=== PATIENT | female | born 1935 | race Caucasian/White ===

== ENCOUNTER 2017-04-12 12:18 | Emergency (ER) | payer MEDICARE ==
[2017-04-12] MEDS ORDERED: Aspirin 81 MG Tab.Chew PO ONE (12:33)
[2017-04-12 13:50] VITALS: BP 125/69
--- NOTE | 2017-04-12 14:29 | EDM.PDOC ---
[id number] 4d CHEST PAIN ON LEFT ARM Time Seen by Provider: 04/12/17 12:40 Source of Information: Reports: Patient, Family History Limitations: Reports: No Limitations - History of Present Illness INITIAL COMMENTS - FREE TEXT/NARRATIVE: pt has been very gasy and she has pain in left shoulder and left ant ches. She is not sob. Onset: Gradual, Other ( some symptoms for the last 2-3 days. 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 ) Duration: Hour(s): Location: Reports: Chest, Upper Extremity, Left Associated Symptoms: Reports: Other (pt has pain in left upper chest and left shoulder. ) left arm Pain Score (Numeric/FACES): 6 - Related Data Allergies Allergy/AdvReac Type Severity Reaction Status Date / Time lisinopril Allergy Cough Verified 07/12/13 12:06 sulfisoxazole Allergy Rash Verified 07/12/13 12:02 [From Gantrisin] sulfisoxazole acetyl Allergy Rash Verified 07/12/13 12:02 [From Gantrisin] Home Meds: Home Meds Omeprazole 20 mg PO BID 07/12/13 [History] Hydrochlorothiazide/Olmesartan [Benicar HCT 20-12.5 MG] 0.5 tab DAILY 04/12/17 [ History] traMADol [Take Home: traMADol 50 MG, 4 Tab Pack] 1 tab PO PRN 04/12/17 [History] Past Medical History Cardiovascular History: Reports: Hypertension Gastrointestinal History: Reports: GERD [employer] History: Reports: Neurological History: Reports: Other (See Below) Other Neuro History: forgetful at times Psychiatric History: Reports: Depression - Infectious Disease History Infectious Disease History: Reports: Chicken Pox, Measles, Rheumatic Fever Social & Family History - Tobacco Use Smoking Status *Q: Former Smoker Used Tobacco, but Quit: Yes Month Tobacco Last Used: April Second Hand Smoke Exposure: No - Caffeine Use Caffeine Use: Reports: Coffee - Alcohol Use Days Per Week of Alcohol Use: 0 - Recreational Drug Use Recreational Drug Use: No - Living Situation & Occupation Living situation: Reports: Occupation: Retired ED ROS GENERAL - Review of Systems Review Of Systems: See Below Constitutional: Reports: No Symptoms HEENT: Reports: No Symptoms Respiratory: Reports: No Symptoms Cardiovascular: Reports: Other (pt has pin in her left shoulder nd the upper left chest. ) Endocrine: Reports: No Symptoms GI/Abdominal: Reports: No Symptoms : Reports: No Symptoms Musculoskeletal: Reports: Other (pt has pain in the left shoulder more when she moves. ) Skin: Reports: No Symptoms ED EXAM, GENERAL - Physical Exam Exam: See Below Free Text/Narrative:: pt arrived complaining of pain in the left shoulder and upper left chest, This definitely hurts more when she moves. She has not been sob but she has been doing alot of belching. Exam Limited By: No Limitations General Appearance: Alert, Moderate Distress Ears: Normal TMs Nose: Normal Inspection Throat/Mouth: Normal Inspection Head: Atraumatic Neck: Normal Inspection Respiratory/Chest: No Respiratory Distress Cardiovascular: Regular Rate, Rhythm, Other (no definite ekg changes. ) GI/Abdominal: Soft, Tender (Female) Exam: Deferred Rectal (Female) Exam: Deferred Back Exam: Normal Inspection Extremities: Normal Inspection Course - Vital Signs Last Recorded V/S: Last Vital Signs Temp 36.5 C 04/12/17 12:48 Pulse 75 04/12/17 13:49 Resp 15 04/12/17 13:49 BP 125/69 04/12/17 13:49 Pulse Ox 98 04/12/17 13:49 - Orders/Labs/Meds Orders: Active Orders 24 hr Category Date Time Status EKG Documentation Completion [RC] ASDIRECTED Care 04/12/17 12:34 Active Chest 1V Frontal [CR] Stat Exams 04/12/17 13:09 Taken EKG 12 Lead [EK] Routine Ther 04/12/17 12:33 Ordered Labs: Laboratory Tests 04/12/17 04/12/17 04/12/17 Range/Units 12:33 12:33 12:34 WBC 6.1 (4.5-11.0) K/uL RBC 4.42 (3.30-5.50) M/uL Hgb 11.8 L (12.0-15.0) g/dL Hct 36.0 (36.0-48.0) % MCV 81 (80-98) fL MCH 27 (27-31) pg MCHC 33 (32-36) % Plt Count 207 (150-400) K/uL Neut % (Auto) 59 (36-66) % Lymph % (Auto) 29 (24-44) % [place] % (Auto) 10 H (2-6) % Eos % (Auto) 2 (2-4) % Baso % (Auto) 1 (0-1) % Sodium 132 L (140-148) mmol/L Potassium 3.9 (3.6-5.2) mmol/L Chloride 99 L (100-108) mmol/L Carbon Dioxide 24 (21-32) mmol/L Anion Gap 12.9 (5.0-14.0) mmol/L BUN 21 H (7-18) mg/dL Creatinine 1.3 H (0.6-1.0) mg/dL Est Cr Clr Drug Dosing 27.60 mL/min Estimated GFR (MDRD) 39 L (>60) Glucose 102 (74-106) mg/dL Calcium 8.6 (8.5-10.1) mg/dL Total Bilirubin 0.6 (0.2-1.0) mg/dL AST 18 (15-37) U/L ALT 15 (12-78) U/L Alkaline Phosphatase 78 (46-116) U/L Creatine Kinase 113 (26-192) U/L Troponin I (0.000-0.056) ng/mL Total Protein 6.7 (6.4-8.2) g/dL Albumin 3.6 (3.4-5.0) g/dL Globulin 3.1 (2.3-3.5) g/dL Albumin/Globulin Ratio 1.2 (1.2-2.2) Lipase 266 (73-393) U/L Urine Color Urine Appearance Urine pH (4.5-8.0) Ur Specific [place] (1.008-1.030) Urine Protein (NEGATIVE) mg/dL Urine Glucose (UA) (NEGATIVE) mg/dL Urine Ketones (NEGATIVE) mg/dL Urine Occult Blood (NEGATIVE) Urine Nitrite (NEGATIVE) Urine Bilirubin (NEGATIVE) Urine Urobilinogen (NORMAL) mg/dL Ur Leukocyte Esterase (NEGATIVE) Urine RBC (0-5) Urine WBC (0-5) Ur Epithelial Cells Urine Bacteria Urine Mucus 04/12/17 04/12/17 Range/Units 13:29 13:45 WBC (4.5-11.0) K/uL RBC (3.30-5.50) M/uL Hgb (12.0-15.0) g/dL Hct (36.0-48.0) % MCV (80-98) fL MCH (27-31) pg MCHC (32-36) % Plt Count (150-400) K/uL Neut % (Auto) (36-66) % Lymph % (Auto) (24-44) % [place] % (Auto) (2-6) % Eos % (Auto) (2-4) % Baso % (Auto) (0-1) % Sodium (140-148) mmol/L Potassium (3.6-5.2) mmol/L Chloride (100-108) mmol/L Carbon Dioxide (21-32) mmol/L Anion Gap (5.0-14.0) mmol/L BUN (7-18) mg/dL Creatinine (0.6-1.0) mg/dL Est Cr Clr Drug Dosing mL/min Estimated GFR (MDRD) (>60) Glucose (74-106) mg/dL Calcium (8.5-10.1) mg/dL Total Bilirubin (0.2-1.0) mg/dL AST (15-37) U/L ALT (12-78) U/L Alkaline Phosphatase (46-116) U/L Creatine Kinase (26-192) U/L Troponin I < 0.017 (0.000-0.056) ng/mL Total Protein (6.4-8.2) g/dL Albumin (3.4-5.0) g/dL Globulin (2.3-3.5) g/dL Albumin/Globulin Ratio (1.2-2.2) Lipase (73-393) U/L Urine Color Yellow Urine Appearance Clear Urine pH 6.0 (4.5-8.0) Ur Specific [place] 1.015 (1.008-1.030) Urine Protein Negative (NEGATIVE) mg/dL Urine Glucose (UA) Normal (NEGATIVE) mg/dL Urine Ketones Negative (NEGATIVE) mg/dL Urine Occult Blood Moderate (NEGATIVE) Urine Nitrite Negative (NEGATIVE) Urine Bilirubin Negative (NEGATIVE) Urine Urobilinogen Normal (NORMAL) mg/dL Ur Leukocyte Esterase Negative (NEGATIVE) Urine RBC 0-5 (0-5) Urine WBC 0-5 (0-5) Ur Epithelial Cells Few Urine Bacteria Not seen Urine Mucus Few Meds: Medications Discontinued Medications Generic Name Dose Route Start Last Admin Trade Name Freq PRN Reason Stop Dose Admin Aspirin 324 mg 04/12/17 12:33 04/12/17 12:51 Aspirin PO 04/12/17 12:34 324 mg ONETIME ONE Administration - Re-Assessments/Exams Free Text/Narrative Re-Assessment/Exam: 04/13/17 07:10 pt had a normal chest xray. She had normal labs and cardiac enzymes. her ekg did not show acute changes. She was very tender to palpate over the left shoulder and upper left chest. She definitely hurt more when she did move. Departure - Departure Time of Disposition: 14:25 Disposition: Home, Self-Care 01 Condition: fair Clinical Impression: Chronic GERD, Left shoulder pain Instructions: Heartburn, [id number], Shoulder Pain, [id number] Referrals: PCP,None [Primary Care Provider] - Forms: ED Department Discharge Care Plan Goals: decreae benacar to 1/2 tab every other day, heat to the shoulder, cont tramodol , tylenol for shoulder discomfort increase omeprozole to twice daily for 5 days and then resume 1 per day rtc if pt develops acute pain, appt with Dr Cano in 1 week. - My Orders Last 24 Hours: My Active Orders 04/12/17 12:33 EKG 12 Lead [EK] Routine 04/12/17 12:34 EKG Documentation Completion [RC] ASDIRECTED 04/12/17 13:09 Chest 1V Frontal [CR] Stat - Assessment/Plan Last 24 Hours: My Active Orders 04/12/17 12:33 EKG 12 Lead [EK] Routine 04/12/17 12:34 EKG Documentation Completion [RC] ASDIRECTED 04/12/17 13:09 Chest 1V Frontal [CR] Stat
--- NOTE | 2017-04-13 09:39 | CR ---
Chest 1V Frontal FINDINGS: There is mild hyperinflation. The heart and vascular structures are normal in appearance. No infiltrates or effusions are demonstrated. The skeletal structures are unremarkable. IMPRESSION: 1. No acute findings.
== END 2017-04-12 14:38 | disposition home or self-care (01) ==
LOC: JP.ED 12:18
DX: M25.512 Pain in left shoulder (principal); K21.9 Gastro-esophageal reflux disease without esophagitis; I10 Essential (primary) hypertension; F32.9 Major depressive disorder, single episode, unspecified; Z87.891 Personal history of nicotine dependence; Z79.899 Other long term (current) drug therapy; Z88.8 Allergy status to other drugs, medicaments and biological substances
CPT/HCPCS: 36415; 71010; 80053; 81001; 82550; 83690; 84484; 85025; 93005; 99284; A9270; 93010; 99283